=== PATIENT | female | born 1965 | race Caucasian/White ===

== ENCOUNTER 2018-04-20 20:12 | Emergency (ER) | payer OTHER ==
[2018-04-20] MEDS ORDERED: Albuterol-Ipratrop 3 mg / 0.5 (3 ml) UD INH STA (20:15)
[2018-04-20] MEDS ORDERED: Albuterol-Ipratrop 3 mg / 0.5 (3 ml) UD ONE ×2 (20:18→21:14)
[2018-04-20 20:29] VITALS: TEMP 98.2
--- NOTE | 2018-04-20 20:37 | C.PDOC ---
History Of Present Illness patient presents with shortness of breath, cough worsening over thew last 3 days. nebs at home not helping. Speaking in5-6 word sentences. No f/c/n/v Time Seen by Provider: 04/20/18 20:36 Chief Complaint (Nursing): Shortness Of Breath History Per: Patient History/Exam Limitations: no limitations Onset/Duration Of Symptoms: Hrs Current Symptoms Are (Timing): Worse Initiating Event: Other Exacerbating Factor(s): Coughing Current Respiratory Medications: See Home Med List Severity: Severe Pain Scale Rating Of: 7 Associated Symptoms: Heart Racing. denies: Fever, Chills, Chest Pain, Productive Cough Reports Recently: Treated By A Physician Recent travel outside of the [place]: No Additional History Per: Patient Past Medical History Reviewed: Historical Data, Nursing Documentation, Vital Signs Vital Signs: Last Vital Signs Temp 98.2 F 04/20/18 20:19 Pulse 130 H 04/20/18 20:19 Resp 26 H 04/20/18 20:19 BP 152/85 H 04/20/18 20:19 Pulse Ox 99 04/20/18 20:19 - Medical History PMH: Asthma Denies: Chronic Kidney Disease Surgical History: Cholecystectomy (gallbladder stones) Family History: States: No Known Family Hx - Social History Hx Alcohol Use: No Hx Substance Use: No - Immunization History Hx Tetanus Toxoid Vaccination: No Hx Influenza Vaccination: No Hx Pneumococcal Vaccination: No Review Of Systems Constitutional: Negative for: Fever, Chills ENT: Negative for: Throat Pain Cardiovascular: Negative for: Chest Pain Respiratory: Positive for: Shortness of Breath, Wheezing Gastrointestinal: Negative for: Abdominal Pain Genitourinary: Negative for: Dysuria Musculoskeletal: Negative for: Back Pain Skin: Negative for: Rash Neurological: Negative for: Weakness Psych: Negative for: Anxiety Physical Exam - Physical Exam Appears: In Acute Distress Skin: Warm, Dry Head: Normacephalic Eye(s): bilateral: Normal Inspection Oral Mucosa: Moist Throat: No Erythema Neck: Supple Chest: Symmetrical Cardiovascular: Rhythm Regular Respiratory: Decreased Breath Sounds, No Rales, Rhonchi, Wheezing Gastrointestinal/Abdominal: Soft, No Tenderness, No Distention Back: No CVA Tenderness Extremity: Normal ROM Extremity: Bilateral: Atraumatic Neurological/Psych: Oriented x3 Gait: Steady ED Course And Treatment - Laboratory Results Result Diagrams: 04/20/18 20:52 04/20/18 20:52 ECG: Interpreted By Me, Viewed By Me ECG Rhythm: Sinus Tachycardia (121), Nonspecific Changes (occ feed crusher's) O2 Sat by Pulse Oximetry: 99 Pulse Ox Interpretation: Normal - Radiology CXR: Interpreted by Me, Viewed By Me CXR Interpretation: Yes: Infiltrates (? lll infiltrate). No: Fracture, Cardiomegaly Progress Note: no more wheezing. speaking in complete sentences. wants to go home. feels a little gittery ( and tachy) from the nebs., vitals stable Reevaluation Time: 00:27 Reassessment Condition: Improved Disposition Counseled Patient/Family Regarding: Studies Performed, Diagnosis, Need For Followup, Rx Given - Disposition Referrals: Irwin Tinajero MD [Medical Doctor] - Disposition: HOME/ ROUTINE Disposition Time: 20:36 Condition: FAIR Additional Instructions: Please return if symptoms recur Prescriptions: Prednisone [Deltasone] 20 mg PO DAILY #5 tablet Instructions: Asthma, Adult (DC) Forms: [facility] [employer] (Czech) - Clinical Impression Clinical Impression: Dyspnea, Asthma exacerbation in COPD
[2018-04-20] MEDS ORDERED: Sodium Chloride 0.9% 1,000 ML IV ONE (20:47)
[2018-04-20] MEDS ORDERED: Sodium Chloride 0.9% 1,000 ML ONE (20:56)
[2018-04-20 21:11] LABS: BASO # 0.1 K/uL (0.0-0.2); BASO % 0.6 % (0.0-2.0); EOS # 0.2 K/uL (0.0-0.7); EOS % 1.4 % (0.0-4.0); HEMOGLOBIN 13.9 g/dL (11.0-16.0); LYMPH # 3.3 K/uL (1.0-4.3); LYMPH % 29.9 % (20.0-40.0); MEAN CELL VOLUME 92.3 fL (81.0-99.0); MEAN CORPUSCULAR HEMOGLOBIN 30.6 pg (27.0-31.0); MEAN CORPUSCULAR HGB CONC 33.1 g/dL (33.0-37.0); MEAN PLATELET VOLUME 7.6 fL (7.2-11.7); MONO # 0.7 K/uL (0.0-0.8); MONO % 6.6 % (0.0-10.0); NEUT # 6.8 K/uL (1.8-7.0); NEUT % 61.5 % (50.0-75.0); RBC 4.53 Mil/uL (3.80-5.20); RED CELL DISTRIBUTION WIDTH 13.4 % (11.5-14.5)
[2018-04-20 21:13] LABS: ALB/GLOB RATIO 1.3 (1.0-2.1); ALBUMIN 4.4 g/dL (3.5-5.0); ALT/SGPT 22 U/L (9-52); AST/SGOT 30 U/L (14-36); BLOOD UREA NITROGEN 16 mg/dL (7-17); CALCIUM 9.6 mg/dl (8.6-10.4); GFR NON-AFRICAN AMERICAN > 60
[2018-04-20] MEDS: Albuterol-Ipratrop 3 mg / 0.5 (3 ml) UD IH SCH (21:20)
[2018-04-20 21:52] LABS: VENOUS BLOOD GAS BASE EXCESS 1.7 mmol/L (0.0-2.0); VENOUS BLOOD GAS PCO2 38 mmHg (40-60); VENOUS BLOOD GAS PO2 28 mm/Hg (30-55); VENOUS BLOOD PH 7.44 (7.32-7.43)
[2018-04-20 22:08] VITALS: PULSE 115
[2018-04-20] MEDS ORDERED: Sodium Chloride 0.9% 500 ML IV ONE ×2 (23:04→23:30)
[2018-04-20] MEDS ORDERED: Magnesium Sulfate 1 gm in D5W 1 GM/100 ML BAG IVPB ONE (23:30)
[2018-04-20] MEDS: Magnesium Sulfate 1 gm in D5W 1 GM/100 ML BAG IVPB SCH (23:34)
[2018-04-21] MEDS: Magnesium Sulfate 1 gm in D5W 1 GM/100 ML BAG IVPB SCH (00:10)
[2018-04-21 01:02] VITALS: BP 138/81; RESP 19; O2SAT 96
--- NOTE | 2018-04-21 10:32 | RAD ---
Chest x-ray single frontal view History: Shortness of breath. Comparison: None available. Findings: Mild venous congestion. Patchy increased markings at the lung bases; left greater than right. Heart size within normal limits. Calcification at the aortic knob. Degenerative changes in the spine and shoulders. Impression: Mild venous congestion. Patchy increased markings at the lung bases; left greater than right. Heart size within normal limits. Calcification at the aortic knob. Degenerative changes in the spine and shoulders.
--- NOTE | 2018-04-21 19:51 | CARD ---
APPROVED REPORT Date of service: 04/20/2018 EKG Measurement Heart [id number] <Conclusion> Sinus tachycardia with premature atrial complexes with aberrant conduction Possible Left atrial enlargement Junctional ST depression, probably normal Borderline ECG
== END 2018-04-21 01:04 | disposition home or self-care (01) ==
LOC: C.ER 20:12
DX: J45.901 Unspecified asthma with (acute) exacerbation (principal); J44.1 Chronic obstructive pulmonary disease with (acute) exacerbation; R06.00 Dyspnea, unspecified
CPT/HCPCS: 71045; 80053; 82803; 85025; 93005; 94640; 96374; 96375; 96376; 99285; J2930; J3475; J7030; J7040